=== PATIENT | female | born 1940 | race Caucasian/White ===

== ENCOUNTER 2017-05-14 11:11 | Outpatient (CLI) ==
--- NOTE | 2017-05-14 12:55 | DI ---
EXAM: RIGHT WRIST THREE VIEWS HISTORY: Injury, pain FINDINGS: There is a transverse fracture of the distal radial metaphysis with mild anterior angulati on and mild to moderate displacement. No definite intra-articular extension is seen. The radiocarpa l joints remain intact. The distal ulna appears grossly normal. Bones appear mildly demineralized. 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 IMPRESSION: 1. Distal radial fracture.
== END 2017-05-14 11:12 | disposition home or self-care (01) ==
LOC: RAD 11:11
PROVIDERS: ATTEND Internal Medicine
DX: S69.91XA Unspecified injury of right wrist, hand and finger(s), initial encounter (principal)